=== PATIENT | female | born 1995 | race American Indian/Alaskan Native ===

== ENCOUNTER 2017-03-23 17:55 | Emergency (ER) | payer MEDICAID ==
[2017-03-23 18:11] VITALS: BMI 29.5
[2017-03-23] MEDS ORDERED: Sodium Chloride 0.9% 1,000 ML IV ONE (18:25)
[2017-03-23 19:02] LABS: BASO % 0.6 % (0.0-2.0); EOS % 0.1 % (0.0-4.0); LYMPH # 0.6 K/uL (1.0-4.3); LYMPH % 23.3 % (20.0-40.0); MEAN CELL VOLUME 83.4 fL (81.0-99.0); MEAN CORPUSCULAR HGB CONC 34.8 g/dL (33.0-37.0); MEAN PLATELET VOLUME 9.6 fL (7.2-11.7); MONO # 0.3 K/uL (0.0-0.8); MONO % 11.9 % (0.0-10.0); NEUT # 1.6 K/uL (1.8-7.0); NEUT % 64.1 % (50.0-75.0); RBC 4.48 Mil/uL (3.80-5.20); RED CELL DISTRIBUTION WIDTH 18.7 % (11.5-14.5); WHITE BLOOD COUNT 2.5 K/uL (4.8-10.8)
[2017-03-23 19:12] LABS: HCG,QUALITATIVE URINE POSITIVE (NEGATIVE); SQUAMOUS EPITHIAL 2 /hpf (0-5); URINE BACTERIA RARE (<OCC); URINE CALCIUM OXALATE CRYSTALS FEW /hpf (<OCC)
[2017-03-23 19:14] LABS: URINE CLARITY CLEAR (Clear); URINE COLOR YELLOW (YELLOW)
[2017-03-23 19:15] LABS: URINE BILIRUBIN SMALL (NEGATIVE); URINE BLOOD NEGATIVE (NEGATIVE); URINE GLUCOSE (UA) NEGATIVE (Normal); URINE LEUKOCYTE ESTERASE NEGATIVE Leu/uL (Negative); URINE NITRATE NEGATIVE (NEGATIVE); URINE PROTEIN TRACE mg/dL (NEGATIVE)
[2017-03-23 19:17] LABS: ALB/GLOB RATIO 1.2 (1.0-2.1); ALBUMIN 3.4 g/dL (3.5-5.0); ALT/SGPT 22 U/L (9-52); AST/SGOT 15 U/L (14-36); BLOOD UREA NITROGEN 3 mg/dL (7-17); CALCIUM 8.6 mg/dl (8.6-10.4); GFR AFRICAN-AMERICAN > 60; GFR NON-AFRICAN AMERICAN > 60
--- NOTE | 2017-03-23 19:36 | C.PDOC ---
History Of Present Illness 21 year old female presents to the ER for evaluation of subjective fever, cough , congestion, nausea, vomiting, and generalized body aches which have been present for the past 4 days. Patient states she is taking Tylenol. Patient denies having chest pain, SOB, abdominal pain, urinary symptoms or rash.Of note , patient is 11 weeks . Time Seen by Provider: 03/23/17 18:20 Chief Complaint (Nursing): Flu-like Symptoms History Per: Patient History/Exam Limitations: no limitations Onset/Duration Of Symptoms: Days Associated Symptoms: Fever, Cough, Nasal Congestion, Nausea, Vomiting. denies: Diarrhea Severity: Moderate Past Medical History Reviewed: Historical Data, Nursing Documentation, Vital Signs Vital Signs: Last Vital Signs Temp 98 F 03/23/17 19:53 Pulse 94 H 03/23/17 19:53 Resp 20 03/23/17 19:53 BP 132/78 03/23/17 19:53 Pulse Ox 99 03/23/17 20:16 - Medical History PMH: Asthma Surgical History: No Surg Hx Family History: States: No Known Family Hx - Social History Hx Tobacco Use: Yes Hx Alcohol Use: No Hx Substance Use: No - Immunization History Hx Tetanus Toxoid Vaccination: No Hx Influenza Vaccination: No Hx Pneumococcal Vaccination: No Review Of Systems Except As Marked, All Systems Reviewed And Found Negative. Constitutional: Positive for: Fever, Malaise. Negative for: Chills ENT: Positive for: Nose Congestion Cardiovascular: Negative for: Chest Pain Respiratory: Positive for: Cough. Negative for: Shortness of Breath Gastrointestinal: Positive for: Nausea, Vomiting. Negative for: Abdominal Pain Genitourinary: Negative for: Dysuria, Vaginal Bleeding, Pelvic Pain Musculoskeletal: Positive for: Other (bodyaches). Negative for: Neck Pain, Back Pain Skin: Negative for: Rash Neurological: Negative for: Headache Physical Exam - Physical Exam Appears: Non-toxic, No Acute Distress Skin: Normal Color, Warm, Dry, No Pale, No Rash Head: Atraumatic, Normacephalic Eye(s): bilateral: Normal Inspection, EOMI Ear(s): Bilateral: Normal Nose: Normal Oral Mucosa: Moist Throat: Normal, No Erythema, No Exudate Neck: Supple Lymphatic: Normal Exam, No Adenopathy Chest: Symmetrical Cardiovascular: Rhythm Regular, No Murmur Respiratory: Normal Breath Sounds, No Accessory Muscle Use, No Rales, No Rhonchi , No Wheezing Gastrointestinal/Abdominal: Bowel Sounds, Soft, No Tenderness, No Distention, No Guarding Back: Normal Inspection, No Vertebral Tenderness, No Paraspinal Tenderness Extremity: Normal ROM, No Tenderness, No Deformity, No Swelling Neurological/Psych: Oriented x3, Normal Speech, Normal Motor, Normal Sensation Gait: Steady ED Course And Treatment - Laboratory Results Result Diagrams: 03/23/17 18:52 03/23/17 18:52 O2 Sat by Pulse Oximetry: 99 (RA) Pulse Ox Interpretation: Normal Medical Decision Making Medical Decision Making: Patient with multiple symptoms, likely influenza. Patient is out of time window for Tamiflu. Will treat with IV fluids and Zofran. Labs reviewed, mildly dehydrated and patient treated with 1L NS. On re-eval at 1935 patient is resting comfortably in bed and reports feeling mildly better, nausea improved. explained lab results and coures of Influenza. Recommend supportive treatment Tylenol and antiemetics. Patient stable for discharge. Advise follow up with PCP in few days. Disposition Counseled Patient/Family Regarding: Diagnosis, Need For Followup, Rx Given - Disposition Referrals: Alex Broussard MD [Staff Provider] - Disposition: HOME/ ROUTINE Disposition Time: 19:38 Condition: IMPROVED Additional Instructions: You have Influenza Take Tylenol every 4-6 hours for Fever 100.4F or higher. Rest and drink plenty of fluids. Follow up with your primary medical doctor for further evaluation. Return to the emergency department at any time if symptoms persist or worsen. Prescriptions: Doxylamine/Pyridoxine HCl (B6) [Lisa Zavala 10-10 mg Tablet] 1 each PO Q8 PRN # 10 tablet.dr [place] Reason: Nausea/Vomiting Instructions: Influenza (ED) Forms: [facility] (Ukrainian) - POA Present On Arrival: Blood Incompatibility - Clinical Impression Clinical Impression: Influenza - PA / PMO CONSULTANT / Resident Statement MD/DO has reviewed & agrees with the documentation as recorded. - Scribe Statement The provider has reviewed the documentation as recorded by the Scarlettibe Andrés Funk Provider Attestation All medical record entries made by the Scribe were at my direction and personally dictated by me. I have reviewed the chart and agree that the record accurately reflects my personal performance of the history, physical exam, medical decision making, and the department course for this patient. I have also personally directed, reviewed, and agree with the discharge instructions and disposition.
[2017-03-23 19:54] VITALS: BP 132/78; PULSE 94; RESP 20; TEMP 98
[2017-03-23 20:14] VITALS: O2SAT 99
== END 2017-03-23 19:53 | disposition home or self-care (01) ==
LOC: C.ER 17:55
DX: J11.1 Influenza due to unidentified influenza virus with other respiratory manifestations (principal); O26.891 Other specified pregnancy related conditions, first trimester; Z3A.11 11 weeks gestation of pregnancy
CPT/HCPCS: 80053; 81001; 84703; 85025; 96361; 96374; 99283; J2405; J7040